=== PATIENT | female | born 1945 | race Caucasian/White ===

== ENCOUNTER 2016-10-25 09:20 | Day surgery (SDC) | payer MEDICARE ==
[~2016-10-25] VITALS: Ht 175.3 cm; Wt 76.2 kg
[2016-10-25] VITALS (13 sets, daily range): BP systolic 102–148; BP diastolic 54–77; PULSE 43–104; RESP 15–25; O2SAT 97–100
[~2016-10-25 09:20] MED LIST: BIOT5000 PO; CHOL100045 PO; CeFAZolin Inj 2 GM in IV Premix 1 EACH IV ONE; GLUC-210 PO; Lactated Ringer's 1,000 ML IV SCH; MULT-666 PO; OMEG-38 PO
[2016-10-25] MEDS ORDERED: Dexamethasone 4 mg/mL Inj ONE (09:21)
[2016-10-25] MEDS ORDERED: Glycopyrrolate 0.2 MG/ML 1mL Inj ONE (09:21)
[2016-10-25] MEDS ORDERED: Rocuronium 10 mg/mL 5 mL Inj ONE (09:21)
[2016-10-25] MEDS ORDERED: Ondansetron 2 mg/mL 2 mL Inj ONE (09:21)
[2016-10-25] MEDS ORDERED: Neostigmine 1 mg/mL 10 mL Inj ONE (09:21)
[2016-10-25] MEDS ORDERED: EPHEDrine/NS 5 mg/mL 5 mL Syringe ONE (09:21)
[2016-10-25] MEDS ORDERED: Propofol 10,000 mCg/mL 20 mL Inj ONE (09:21)
[2016-10-25] MEDS ORDERED: fentaNYL-PF 50 mCg/mL 2 mL Inj ONE (09:21)
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
[2016-10-25] MEDS ORDERED: Lactated Ringer's 500 ML IV PRN (10:51)
[2016-10-25] MEDS ORDERED: Lactated Ringer's 1,000 ML IV SCH (10:51)
[2016-10-25] MEDS ORDERED: Bupivacaine-MPF 0.5% W/EPI 30 mL Inj INFILTRATE ONE (10:52)
[2016-10-25] MEDS ORDERED: Phenylephrine 10,000 mCg/mL Inj IVPUSH PRN (10:55)
[2016-10-25] MEDS ORDERED: EPHEDrine Sulfate 50 mg/mL Inj IVPUSH PRN (10:55)
[2016-10-25] MEDS ORDERED: MetoCLOpramide 5 mg/mL 2 mL Inj IVPUSH PRN (10:55)
[2016-10-25] MEDS ORDERED: HYDROmorphone 1 mg/mL Inj IVPUSH PRN (10:55)
[2016-10-25] MEDS ORDERED: hydrALAZINE 20 mg/mL Inj IVPUSH PRN (10:55)
[2016-10-25] MEDS ORDERED: Atropine 0.4 mg/mL Inj IVPUSH PRN (10:55)
[2016-10-25] MEDS ORDERED: fentaNYL-PF 50 mCg/mL 2 mL Inj IVPUSH PRN (10:55)
[2016-10-25] MEDS ORDERED: Labetalol 5 mg/mL 4 mL Inj IV PRN (10:55)
[2016-10-25] MEDS ORDERED: Ondansetron 2 mg/mL 2 mL Inj IVPUSH PRN (10:55)
--- NOTE | 2016-10-25 11:59 | DRSVH ---
PROCEDURE: X-RAY OPERATIVE CHOLANGIOGRAM ([id number]) INDICATIONS: GALLBLADDER MASS COMPARISON: [facility], US, US ABDOMEN, 10/03/2016, 7:48. [facility], CT, CT ABD PELVIS W CON, 09/30/2015, 17:29. FINDINGS: Biliary ducts: The surgeon injected contrast into the biliary ducts after cannulation of the cystic duct stump. Visualized intra- and extrahepatic bile ducts are normal in caliber, without strictures. No intraluminal filling defects to suggest retained ductal stones or sludge. No evidence for iatro genic ductal injury. Duodenum: Contrast flows promptly through the sphincter of Oddi into the duodenum, which appears nor mal in caliber. IMPRESSION: Normal operative cholangiogram. Dictated by: Nito Taylor M.D. on 10/25/2016 at 11:57 Approved by: Nito Taylor M.D. on 10/25/2016 at 11:58
[2016-10-25] MEDS ORDERED: oxyCODONE-Acetamin 5-325 mg Tablet PO PRN (12:45)
--- NOTE | 2016-10-25 12:47 | PCM.ANEP1 ---
Post Anesthesia Phase 1 PACU Phase 1 Assessment Date of Service: October 25, 2016 Vital Signs Vital Signs Date Time Temp Pulse Resp B/P Pulse Ox O2 Delivery O2 Flow Rate FiO2 10/25/16 12:40 45 18 129/64 100 Room Air 10/25/16 12:35 51 25 126/65 100 Room Air 10/25/16 12:30 47 17 129/69 99 Room Air 10/25/16 12:25 51 19 123/69 99 Room Air 10/25/16 12:20 97 16 135/73 97 Room Air 10/25/16 12:16 101 25 138/77 97 Room Air 10/25/16 12:10 36.6 104 148/73 97 Room Air 10/25/16 09:49 36.5 51 16 102/66 97 Room Air Anesthetic Administered: GA Level of Alertness: Sleepy, easy to arouse NICE's with Equal Strength: Yes Pain: No Nausea or Vomiting: No Cardiovascular Function and Hy: Yes Oxygen Delivery: Room Air Lungs: Clear to Auscultation, Normal Air Movement Complications: No Follow up Care: No Patient Instructions Provided: Yes Kevin Mitchell MD October 25, 2016 12:47
--- NOTE | 2016-10-25 12:58 | PCM.SURGOP ---
Surgical Operative Report Date of Service: October 25, 2016 Pre Operative Diagnosis Mass of gallbladder Post Operative Diagnosis Biliary colic Procedure: Laparoscopic cholecystectomy with intraoperative cholangiogram, with interpretation Surgeon and Juvenile Officer: Surgeon: Dipika Maravilla MD Assistants:Nirav Loving PA-C The presence of an medical office assistant was necessary for dissection and retraction. Indication for Procedure This is a 79-year-old woman who was found on regular lab workup to have mild elevation in her transaminases. She underwent abdominal ultrasound and a nonmobile mass was found in the neck of her gallbladder, which was considered to be either neoplastic or tumefactive sludge. Upon interview, she has postprandial right upper quadrant abdominal discomfort, and has been avoiding fatty foods for quite some time as a result. Based on both the possibility of neoplasm and her symptoms, laparoscopic cholecystectomy was planned. Findings: 1. Moderately inflamed gallbladder with overlying adhesions. 2. Normal intraoperative cholangiogram with a long cystic duct, no filling defects, and adequate visualization of the right and left hepatic ducts, common hepatic duct, common bile duct, with good filling of the duodenum. 3. Minimal bowel adhesions from previous right hemicolectomy. 4. Adhesions over the liver, suggestive but not diagnostic of history of Galo- Emery Law syndrome. Procedure Details The patient was brought to the operating room and placed in supine position. General endotracheal anesthesia was smoothly induced. Antibiotics were infused. A warming blanket and SCDs were placed. A foot board was placed. The operative field was prepped and draped in sterile fashion. A pause was performed to confirm the correct patient, procedure, site, and side. A transverse 10 mm incision was made just below the umbilicus. The abdomen was entered under direct vision using a Courtney port. Three additional 5 mm ports were placed in the epigastrium and right upper quadrant. The gallbladder was identified and lifted cephalad. There were moderate adhesions due to cholecystitis, and substantial pericholecystic edema. The omental adhesions were gently dissected off of the gallbladder. Dissection then proceeded to identify the cystic duct, cystic artery, and to expose the lower one-third of the cystic plate. There appeared to be 2 branches of the cystic artery, both directly entering the gallbladder. Once there were only these 2 structures and the cystic duct seemed to be entering the gallbladder, a clip was placed on the gallbladder side of the cystic duct. A ductotomy was made and a cholangiocatheter was inserted. A cholangiogram was performed and the cystic duct was long and patent with normal filling of the common hepatic duct, common bile duct, and right and left hepatic ducts, as noted above. The cholangiocatheter was then removed, two clips were placed on the cystic duct and it was divided. The two cystic arteries were clipped on both the gallbladder side and the patient's side and divided. The gallbladder was then removed from its bed on the liver with electrocautery. Prior to completely removing the gallbladder, a final look was taken at the stump of the cystic artery and cystic duct, and there was no bleeding or bile leak. The gallbladder was then fully removed from the liver and placed in an EndoCatch bag and removed. The three 5 mm ports were removed under direct vision, the 10 mm mid abdominal port was removed, and a [id number] 0 PDS was used to close the fascia. There was no fascial defect at the end of the case. 0.5% Marcaine with epinephrine was infused at all port sites for postoperative analgesia. The skin was closed with subcuticular 4-0 Monocryl. Sterile dressings were placed. Sponge, instrument, and needle counts were correct at the end of the procedure. The patient was awakened from general anesthesia and taken to the postoperative care unit in good condition. Complications There were no periprocedural complications identified. Surgical Specimen Removed: Yes Specimen sent to Pathology: Yes Surgical Specimen description: Gallbladder Anesthetic Plan: GA Grafts, Implants: None Output, Estimated Blood Loss: 2 (ml) Blood Administration during lujan: No Dipika Maravilla MD October 25, 2016 12:58
--- NOTE | 2016-10-27 17:45 | PATH ---
SURGICAL PATHOLOGY Attending Physician:Dipika Maravilla MD CASE STATUS: Signed Out PATIENT NAME: EDUARDO ANDUJAR PID: [id number] : 1945 DATE COLLECTED:10/25/2016 21:13 SPECIMEN: Gallbladder CLINICAL HISTORY: GALLBLADDER MASS, TUMEFACTIVE SLUDGE VS NEOPLASM NEAR CYSTIC DUCT ON PRE-OP US. PLEASE EVAL FOR NEOPLASM 1). GALLBLADDER FINAL DIAGNOSIS: Gallbladder, Laparoscopic Cholecystectomy: Chronic cholecystitis and cholesterolosis. There is a small region of thick-walled vessels near the cystic duct sections, suggestive of a possible benign hemangioma. No dysplasia or malignancy identified. ICD10: K80.7 GROSS DESCRIPTION: Received in formalin, labeled "gallbladder", specimen consists of a previously opened cholecystectomy specimen measuring 6.0 x 2.0 x 1.5 cm. Cystic duct measures 0.3 cm in diameter and is patent. The wall measures 0.2 to 0.3 cm in maximum thickness and mucosal surface is pale swan to green, velvety and grossly unremarkable. No gallstones are grossly identified. No cystic lymph node-like structure is grossly identified. The cystic duct resection margin is inked orange. Cystic duct is submitted in cassette A and two accounts receivable representative sections from neck, body and fundus of the gallbladder submitted in cassette B. ([id number]) ICD-9 CODES: CPT CODES: 1: 86672 PROCEDURE/ADDENDA: Addendum SPI Addendum Diagnosis Gallbladder, laparoscopic cholecystectomy: Negative for dysplasia and neoplasia (entire cystic duct region submitted for histologic evaluation). Addendum Comment REASON FOR THE ADDENDUM: The remaining cystic duct region is submitted for processing to evaluate for neoplasia per request on requisition. Electronically Signed Out Emily Mac MD Electronically Signed Out Emily Mac MD [facility] [address], [place] [address] Technical component performed at [facility], [address], [place], [address]
== END 2016-10-25 23:59 | disposition home or self-care (01) ==
LOC: SAS 09:20
PROVIDERS: ATTEND Surgery
DX: K80.10 Calculus of gallbladder with chronic cholecystitis without obstruction (principal); K82.8 Other specified diseases of gallbladder; F32.9 Major depressive disorder, single episode, unspecified; Z85.41 Personal history of malignant neoplasm of cervix uteri; Z90.710 Acquired absence of both cervix and uterus; Z92.21 Personal history of antineoplastic chemotherapy; Z92.3 Personal history of irradiation; Z90.49 Acquired absence of other specified parts of digestive tract
CPT/HCPCS: 47563; 74300; J0690; J1100; J2250; J2405; J2710; J3010; J7120; Q9967